=== PATIENT | female | born 1980 | race Caucasian/White ===

== ENCOUNTER 2020-07-05 14:02 | Emergency (ER) | payer OTHER, SELFPAY ==
--- NOTE | ~2020-07-05 | XR_ITS ---
EXAMINATION: XR wrist RT min 3V DATE: 07/05/2020 14:39 INDICATION: Hyper ulnar deviation injury presenting with ulnar-sided right wrist pain TECHNIQUE: Posteroanterior, ulnar deviation, oblique, and lateral views of the right wrist were obtai becky. COMPARISON: none FINDINGS: Alignment is normal. No fracture. Bone island at the distal radius. Joint spaces are normal. Soft tis sues are unremarkable. IMPRESSION: 1. Negative right wrist radiographs. Reviewed, dictated and finalized at location A. R AUTHORIZATION NURSE
[2020-07-05 14:08] VITALS: BP 137/89; PULSE 96; RESP 16; TEMP 36.2; O2SAT 100
--- NOTE | 2020-07-05 14:34 | ED.GENADULT ---
HPI - General Adult General Chief complaint: Extremity Injury, Upper Stated complaint: Wrist Pain Time Seen by Provider: 07/05/20 14:04 Source: patient Mode of arrival: ambulatory Limitations: no limitations History of Present Illness HPI narrative: 39 y/o female. PMH includes: MDD, GERD. Presents to [facility] with acute complaints of RT wrist pain for past 72 hours. Client reports to have been boiling hot water on the stove when shah slipped , she quickly caught the shah but it was heavy and bent her wrist back really far . She notes worsening pain with activity since incident. No falls or additional trauma identified. No loss of upper extremity sensation or control. She is without additional acute complaints upon exam. Related Data Home Medications Medication Instructions Recorded Confirmed omeprazole magnesium [Prilosec OTC] 20 mg PO DAILY 04/10/19 07/05/20 sertraline [Zoloft] 200 mg PO DAILY 04/10/19 07/05/20 cholestyramine (with sugar) ea 07/05/20 Allergies Allergy/AdvReac Type Severity Reaction Status Date / Time No Known Allergies Allergy Unknown Verified 07/05/20 14:20 Review of Systems Review of Systems: Narrative: CONSTITUTIONAL: Denies fever, chills, sweats. EYES: Denies visual changes, redness, discharge. ENT: Denies rhinorrhea, congestion, sore throat, otalgia. CARDIOVASCULAR: Denies chest pain, palpitations, edema. RESPIRATORY: Denies dyspnea, wheezing, cough GASTROINTESTINAL: Denies abdominal pain, nausea, vomiting, diarrhea. GENITOURINARY: Denies dysuria, hematuria, abnormal discharge SKIN: Denies rash or itching. MUSCULOSKELETAL: Positive RT wrist pain. No additional musculoskeletal complaints. NEUROLOGIC: Denies numbness, or focal weakness. PSYCHIATRIC: Denies anxiety or depression. All systems reviewed & are unremarkable except as noted in HPI and below PMFSH Past Medical History Medical History Anxiety and depression GERD (gastroesophageal reflux disease) Social History Social History Smoking packs per day: 1 Smoking cigarettes per day: 20.0 Years smoked: 20 Smoking pack-years: 20.00 Comments At time of signature, I agree with nursing past medical, surgical, social and family history. There is no relevant family history pertinent to the presenting complaint. Exam Narrative: Exam Narrative: GENERAL: This is a well-nourished, well-developed patient, in no apparent distress. HEAD: normocephalic, atraumatic. EYES: PERRL. Sclera clear/white. Vision is grossly intact. EARS: External ears normal, auditory canals clear and without drainage, TMs normal without perforation. Hearing grossly intact. NOSE: External nose normal with no obvious nasal discharge, nares without redness, no rhinorrhea. THROAT: Mucous membranes moist, posterior pharynx clear. NECK: Neck supple, non-tender without lymphadenopathy, masses or thyromegaly. CARDIOVASCULAR: Regular rate and rhythm without murmurs, gallops, or rubs. Strong present pulses RUE. RESPIRATORY: Clear to auscultation. Breath sounds equal bilaterally. No wheezes, rales, or rhonchi. GASTROINTESTINAL: Abdomen soft, non-tender, nondistended. Bowel sounds are active. No hepato-splenomegaly, or palpable masses. No guarding. SKIN: warm, intact with no suspicious lesions or rash, good texture and turgor. NEURO: awake, alert, and oriented to person, place and time. RUE sensation intact all sites tested. There were no obvious focal neurologic abnormalities. EXTREMITIES: RT wrist: No gross swelling. There is mild soft tissue tenderness laterally. ROM is preserved. No appreciated ligamentous instability. No deformity. Remainder of musculoskeletal exam is negative. Course Course Emergency Course: -39 y/o female. -CC: RT wrist pain S/P mechanical injury 72 hours ago. -She remains neurovascularly intact. No obvious d
== END 2020-07-05 15:10 | disposition home or self-care (01) ==
PROVIDERS: Emergency Provider Nurse Practitioner Adult Health; PCP Internal Medicine
DX: S63.501A Unspecified sprain of right wrist, initial encounter (principal); S66.911A Strain of unspecified muscle, fascia and tendon at wrist and hand level, right hand, initial encounter; X50.9XXA Other and unspecified overexertion or strenuous movements or postures, initial encounter; K21.9 Gastro-esophageal reflux disease without esophagitis; F41.9 Anxiety disorder, unspecified; F32.9 Major depressive disorder, single episode, unspecified
CPT/HCPCS: 73110; 99213; G0463

== ENCOUNTER 2022-06-28 09:50 | Emergency (ER) | payer OTHER, SELFPAY ==
--- NOTE | 2022-06-28 09:52 | ED.DIZZY ---
HPI - Dizziness General Chief Complaint: Head Injury Stated Complaint: hit head feels dizzy/head pressure Time Seen by Provider: 06/28/22 09:52 Source: patient and RN notes reviewed History of Present Illness HPI Narrative: Patient is a 41-year-old female who presents to urgent care with complaints of dizziness, headache, nausea. Patient states that she fell out of a Hammock chair yesterday straight on her back hitting her head on the concrete. Patient states that she felt a little nauseated this morning. 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 Patient denies any vomiting. Patient states that she took ibuprofen for the headache. Patient did drive herself to the facility this morning without difficulty. No other acute complaints. No acute distress noted. Patient aware of the plan of care. Some parts of this dictation were generated by voice recognition software and may contain typographical and/or grammatical inaccuracies. Related Data Home Medications Medication Instructions Recorded Confirmed sertraline 100 mg tablet (Zoloft) 200 mg PO DAILY 04/10/19 07/05/20 cariprazine 1.5 mg capsule 1.5 mg DIRECTED 06/28/22 06/28/22 (Vraylar) trazodone 50 mg tablet 50 mg DIRECTED 06/28/22 06/28/22 Allergies Allergy/AdvReac Type Severity Reaction Status Date / Time No Known Allergies Allergy Unknown Verified 07/05/20 14:20 Review of Systems Review of Systems: CONSTITUTIONAL: Denies fever, chills, or sweats. EYES: Denies visual changes, redness, or discharge. ENT: Denies rhinorrhea, congestion, sore throat, or otalgia. CARDIOVASCULAR: Denies chest pain, palpitations, or edema. RESPIRATORY: Denies cough or dyspnea. GASTROINTESTINAL: reports nausea without vomiting GENITOURINARY: Denies dysuria or hematuria. SKIN: Denies rash or itching. MUSCULOSKELETAL: Denies back pain, joint pain, or myalgia. NEUROLOGIC: Reports of a headache and dizziness All other systems reviewed are negative, except as documented in HPI. [facility] Past Medical History Medical History Anxiety and depression GERD (gastroesophageal reflux disease) Social History Social History Smoking packs per day: 1 Smoking cigarettes per day: 20.0 Years smoked: 20 Smoking pack-years: 20.00 Comments At the time of my signature, I reviewed and agree with the nursing past medical, surgical, social, and family history. There is no relevant family history pertinent to the patient complaint. Exam Narrative: GENERAL: This is a well-nourished, well-developed patient, in no apparent distress. HEAD: normocephalic, atraumatic. EYES: PERRL. Sclera clear/white. Vision is grossly intact. EARS: External ears normal NOSE: External nose normal with no obvious nasal discharge, nares without redness, no rhinorrhea. THROAT: Mucous membranes moist NECK: Neck supple, range of motion within normal limits CARDIOVASCULAR: Regular rate and rhythm without murmurs, gallops, or rubs. RESPIRATORY: Clear to auscultation. Breath sounds equal bilaterally. No wheezes, rales, or rhonchi. SKIN: warm, intact with no suspicious lesions or rash, good texture and turgor. NEURO: awake, alert, and oriented to person, place and time. There were no obvious focal neurologic abnormalities. EXTREMITIES: No clubbing, cyanosis, or edema. Course Course Level of Care: Express Care Visit Vital Signs Vital signs: Vital Signs Temperature 98.0 F 06/28/22 09:58 Pulse Rate 86 06/28/22 09:58 Respiratory Rate 16 06/28/22 09:58 Blood Pressure 141/97 H 06/28/22 09:58 Pulse Oximetry 100 06/28/22 09:58 Oxygen Delivery Room Air 06/28/22 09:58 Temperature 98.0 F 06/28/22 10:06 Pulse Rate 86 06/28/22 10:06 Respiratory Rate 16 06/28/22 10:06 Blood Pressure 141/97 H 06/28/22 10:06 Pulse Oximetry 1
[2022-06-28 09:58] VITALS: BP 141/97; PULSE 86; RESP 16; TEMP 36.7; O2SAT 100
[2022-06-28 10:06] VITALS: BP 141/97; PULSE 86; RESP 16; TEMP 36.7; O2SAT 100
== END 2022-06-28 10:27 | disposition home or self-care (01) ==
PROVIDERS: Emergency Provider Nurse Practitioner Family; PCP Internal Medicine
DX: S06.0X0A Concussion without loss of consciousness, initial encounter (principal); W17.89XA Other fall from one level to another, initial encounter; F41.9 Anxiety disorder, unspecified; F32.A Depression, unspecified; K21.9 Gastro-esophageal reflux disease without esophagitis
CPT/HCPCS: 99213; G0463

== ENCOUNTER 2023-02-02 17:32 | Emergency (ER) | payer OTHER, SELFPAY ==
[2023-02-02 17:39] VITALS: BP 120/85; PULSE 92; RESP 18; TEMP 36.8; O2SAT 99
--- NOTE | 2023-02-02 17:41 | ED.SKABFB ---
HPI - Skin/Abscess/Foreign Bdy General Chief complaint: Skin/Abscess/Foreign Body Stated complaint: Skin Sore Source: patient and RN notes reviewed History of Present Illness HPI narrative: 42 yo F presents to urgent care with complaints of what she thought could have been a bug bite to her right upper buttocks. Pt states she first noticed a red bump/spot about 3-4 weeks ago. Pt states it is now getting worse and is tender. Denies any drainage from the area. Denies any fevers, chills, or vomiting. Pt has not put any medication on this. Related Data Home Medications Medication Instructions Recorded Confirmed sertraline 100 mg tablet (Zoloft) 200 mg PO DAILY 04/10/19 02/02/23 trazodone 50 mg tablet 50 mg DIRECTED 06/28/22 02/02/23 Allergies Allergy/AdvReac Type Severity Reaction Status Date / Time No Known Allergies Allergy Unknown Verified 02/02/23 17:38 Review of Systems Review of Systems: CONSTITUTIONAL: Denies fever, chills, or sweats. EYES: Denies visual changes, redness, or discharge. ENT: Denies otalgia and sore throat CARDIOVASCULAR: Denies chest pain, palpitations, or edema. RESPIRATORY: Denies cough or dyspnea. GASTROINTESTINAL: Denies abdominal pain, nausea, vomiting, or diarrhea. GENITOURINARY: Denies dysuria or hematuria. SKIN: red spot to right upper buttocks MUSCULOSKELETAL: Denies back pain, joint pain, or myalgia. NEUROLOGIC: Denies headache, numbness, or weakness. Pertinent positives per HPI. PMFSH Past Medical History Medical History Anxiety and depression GERD (gastroesophageal reflux disease) Social History Social History Smoking packs per day: 1 Smoking cigarettes per day: 20.0 Years smoked: 20 Smoking pack-years: 20.00 Comments At the time of my signature, I reviewed and agree with the nursing past medical, surgical, social, and family history. There is no relevant family history pertinent to the patient complaint. Exam Narrative: GENERAL: This is a well-nourished, well-developed patient, in no apparent distress. HEAD: normocephalic, atraumatic. EYES: Sclera clear/white. Vision is grossly intact. EARS: External ears normal, auditory canals clear and without drainage. Hearing grossly intact. NOSE: External nose normal with no obvious nasal discharge, nares without redness, no rhinorrhea. THROAT: Mucous membranes moist, posterior pharynx clear. NECK: Neck supple, non-tender without lymphadenopathy, masses or thyromegaly. CARDIOVASCULAR: Regular rate and rhythm without murmurs, gallops, or rubs. RESPIRATORY: Clear to auscultation. Breath sounds equal bilaterally. No wheezes, rales, or rhonchi. SKIN: right upper buttocks has 1.5 cm center, darkened red pamunkey, with another 1 cm in radius of erythema surrounding it. No fluctuance or induration. No drainage. NEURO: awake, alert, and oriented to person, place and time. There were no obvious focal neurologic abnormalities. EXTREMITIES: No clubbing, cyanosis, or edema. No joint tenderness, effusion, or edema noted. BACK: Nontender without deformity or crepitus. No flank tenderness. Course Course Level of Care: Express Care Visit Vital Signs Vital signs: Vital Signs Temperature 98.2 F 02/02/23 17:39 Pulse Rate 92 02/02/23 17:39 Respiratory Rate 18 02/02/23 17:39 Blood Pressure 120/85 02/02/23 17:39 Pulse Oximetry 99 02/02/23 17:39 Oxygen Delivery Room Air 02/02/23 17:39 Temperature 98.2 F 02/02/23 17:47 Pulse Rate 92 02/02/23 17:47 Respiratory Rate 18 02/02/23 17:47 Blood Pressure 120/85 02/02/23 17:47 Pulse Oximetry 99 02/02/23 17:47 Oxygen Delivery Room Air 02/02/23 17:47 Reviewed MDM - Skin/Abscess/Foreign Bdy MDM Narrative Medical decision making narrative: Clean with soap and water only; Avoid using alcohol and peroxide. Elevate the affected a
[2023-02-02 17:47] VITALS: BP 120/85; PULSE 92; RESP 18; TEMP 36.8; O2SAT 99
== END 2023-02-02 17:50 | disposition home or self-care (01) ==
PROVIDERS: Emergency Provider Nurse Practitioner Family; PCP Internal Medicine
DX: L03.317 Cellulitis of buttock (principal); F17.210 Nicotine dependence, cigarettes, uncomplicated; Z79.899 Other long term (current) drug therapy
CPT/HCPCS: 99213; G0463

== ENCOUNTER 2024-01-31 14:02 | Emergency (ER) | payer OTHER, SELFPAY ==
[2024-01-31 14:10] VITALS: BP 137/89; PULSE 69; RESP 16; TEMP 36.7; O2SAT 100
--- NOTE | 2024-01-31 14:39 | ED.URI ---
HPI - URI/Sore Throat General Chief Complaint: Upper Respiratory Infection Stated Complaint: Sore Throat/Chest Congestion Time Seen by Provider: 01/31/24 14:30 Source: patient, RN notes reviewed and old records reviewed Mode of arrival: ambulatory Limitations: no limitations History of Present Illness HPI Narrative: 43 year old female who presents [facility] care with complaints of of 6 day history of cough. sore throat, sinus congestion with cough productive of thich green phlegm. Patient reports that she has upper chest discomfort with cough. Patient reports that she has been taking sinus cold and flu and Ibuprofen for her symptoms.Patient reports that she has done 2 home COVID tests which has been negative. MD elicited complaint: cough and sore throat Onset (ago): day(s) (6) Severity: moderate Pain scale (0-10): 5 Description of mucous: green Able to tolerate fluids by mouth: Yes Treatments prior to arrival: ibuprofen and other (Tylenol cold and flu medication) Related Data Home Medications Medication Instructions Recorded Confirmed sertraline 100 mg tablet (Zoloft) 200 mg PO DAILY 04/10/19 02/02/23 trazodone 50 mg tablet 50 mg DIRECTED 06/28/22 02/02/23 cariprazine 1.5 mg capsule mg 01/31/24 (Vraylar) Allergies Allergy/AdvReac Type Severity Reaction Status Date / Time No Known Allergies Allergy Unknown Verified 01/31/24 14:09 Review of Systems Review of Systems: CONSTITUTIONAL: Reports malaise, chills, sweats, low grade fever. EYES: Denies visual changes, redness, or discharge. ENT: Reports rhinorrhea, congestion, sinus pain, no otalgia and positive for sore throat. CARDIOVASCULAR: Reports upper chest pain with cough,no palpitations, or edema. RESPIRATORY: Reports cough.? Denies dyspnea. GASTROINTESTINAL: Denies abdominal pain, nausea, vomiting, diarrhea SKIN: Denies rash or itching. MUSCULOSKELETAL: reports myalgia. NEUROLOGIC: Denies headache. All systems reviewed & are unremarkable except as noted in HPI and below PMFSH Past Medical History Medical History (Updated 02/01/24 @ 15:20 by Dina Sorto NP) Anxiety and depression GERD (gastroesophageal reflux disease) Surgical History Surgical History (Updated 02/01/24 @ 15:16 by Dina Sorto NP) History of ankle surgery right with hardware Social History Social History (Updated 02/01/24 @ 15:15 by Dina Sorto NP) Smoking packs per day: 1 Smoking cigarettes per day: 20.0 Years smoked: 25 Smoking pack-years: 25.00 Alcohol intake: current Alcohol use details: social Substance use type: does not use Living arrangements: with family Gender identity (if verbalized by the patient): Female Comments At time of signature, agree with nursing past medical, surgical, social and family history. There is no relevant family history pertinent to the presenting complaint Exam Narrative: GENERAL: Well-appearing, well-nourished, and in no acute distress. HEAD: Normocephalic EYES: PERRLA, conjunctivae clear ENT: Nares clear, turbinates edematous and erythematous, clear to yellowish discharge. Mucous membranes moist. TM pearly parada with dull light reflex bilaterally; no tragal tenderness. Oropharynx erythematous without lesions. Tonsils not enlarged and without exudate, no drooling, no hoarseness, no trismus, uvula midline with small white spot noted, post nasal drainage. NECK: Supple. No lymphadenopathy CHEST: scattered wheezes on auscultation, breath sounds equal. positive wheezing,no rhonchi, rales, or stridor. No respiratory distress, speaks in full sentences.productive cough SAO2 100% on room air HEART: Regular rate and rhythm. No murmur heard. SKIN: Warm, dry, no rash. NEURO: Alert and oriented x3. PSYCH: Normal mood and affect Course Course Emergency Course: Patient is aware of diagnosis, understands and agrees to treatment plan.? Anticipatory guidance given.? Patient ag
[2024-01-31 14:45] LABS: EDSTREPNEGPOS1 Negative (Negative)
== END 2024-01-31 14:55 | disposition home or self-care (01) ==
PROVIDERS: Emergency Provider Registered Nurse
DX: J40 Bronchitis, not specified as acute or chronic (principal); J02.9 Acute pharyngitis, unspecified; F17.210 Nicotine dependence, cigarettes, uncomplicated; K21.9 Gastro-esophageal reflux disease without esophagitis; F41.9 Anxiety disorder, unspecified; F32.A Depression, unspecified
CPT/HCPCS: 87081; 87880; 99213; G0463